=== PATIENT | male | born 1965 | race Caucasian/White ===

== ENCOUNTER 2017-02-04 07:31 | Emergency (ER) | payer BC ==
[~2017-02-04] VITALS: Ht 180.3 cm; Wt 90.9 kg
[2017-02-04 07:33] VITALS: BP 145/95
[2017-02-04] MEDS ORDERED: ADDE10CA3 PO (07:35)
[2017-02-04] MEDS ORDERED: KETOROLAC 60 MG/2 ML VIAL (J1885) IM ONE (07:45)
[2017-02-04] MEDS ORDERED: PERC5TAB12 PO (08:33)
[2017-02-04] MEDS ORDERED: CYCL10TA PO (08:33)
--- NOTE | 2017-02-04 09:38 | REP ---
REASON: Neck pain. PRIORS: None. There has been previous anterior cervical discectomy with an internal fixation plate seen from C5 to C7 inclusive. Cancellous screws seen in C5, C6, and C7. There is bone graft material seen at C5-6 and C6-7. The facet joints appear well aligned bilaterally. Flexion and extension is not particularly limited radiographically. Vertebral body height and alignment is within normal limits. The neural foramina appear ample. IMPRESSION: Postoperative changes as described above. The dens cannot be effectively evaluated secondary to the superimposition of osseous structures and/or dentition on all views. Although this plain radiographic evaluation of the cervical spine shows no evidence of a fracture, it should be remembered that CT is much more sensitive than plain radiography of the C-spine in detecting fractures. If this examination was ordered to rule out a fracture, then CT of the cervical spine is recommended. Signed by Andi Smiley DO 02/04/2017 09:39 A
== END 2017-02-04 09:03 | disposition home or self-care (01) ==
LOC: M ED 07:31
DX: M54.12 Radiculopathy, cervical region (principal); G89.29 Other chronic pain; Z79.899 Other long term (current) drug therapy; Z98.890 Other specified postprocedural states
CPT/HCPCS: 72052; 96372; 99282; J1885

== ENCOUNTER → 2020-12-04 | Outpatient (CLI) | payer OTHER ==
[~2020-12-04] MED LIST: ADDE10CA3 PO; CYCL-707 PO; PERC5TAB12 PO
== END ==
LOC: M PLARAD 09:00
PROVIDERS: ATTEND Pain Medicine Interventional Pain Medicine
DX: M54.16 Radiculopathy, lumbar region (principal)